=== PATIENT | female | born 1980 | race Two or more races ===

== ENCOUNTER 2018-09-25 09:31 | Outpatient (CLI) | payer OTHER | END 2018-09-25 09:45 | disposition home or self-care (01) | LOC: SONOGRAMA 09:31 | DX: N84.0 Polyp of corpus uteri (principal); D28.9 Benign neoplasm of female genital organ, unspecified ==

== ENCOUNTER 2025-06-24 10:03 | Outpatient (CLI) | payer OTHER | END 2025-06-24 10:16 | disposition home or self-care (01) | LOC: SONOGRAMA 10:03 | PROVIDERS: ATTEND Specialist | DX: N84.0 Polyp of corpus uteri (principal); D25.9 Leiomyoma of uterus, unspecified; D25.0 Submucous leiomyoma of uterus ==